=== PATIENT | male | born 1975 | race Caucasian/White ===

== ENCOUNTER 2021-05-29 15:18 | Emergency (ER) | payer SELFPAY ==
--- NOTE | ~2021-05-29 | XR_ITS ---
XR chest 2V 05/29/2021 15:54 Indication: Left-sided chest pain Procedure: 2 view chest Comparison: No prior studies for comparison. Findings: Left basilar infiltrates. Heart size normal. Right lung clear. No significant effusion or p neumothorax. No edema. Impression: 1: Left basilar infiltrates may represent atelectasis or developing pneumonia. Reviewed, dictated and finalized at location A. Impression: 1: Left basilar infiltrates may represent atelectasis or developing pneumonia.
--- NOTE | 2021-05-29 15:25 | ECG_ITS ---
Measurements Intervals [place] Rate: 88 P: 36 VT: 172 QRS: 3 QRSD: 101 T: 31 QT: 363 QTc: 440 Interpretive Statements SINUS RHYTHM CONSIDER INFERIOR INFARCT, AGE INDETERMINATE BASELINE ARTIFACT- V1 ABNORMAL ECG Electronically Signed On 05-29-2021 15:36:08 CDT by Alan Myers D.O.
[2021-05-29 15:35] VITALS: BP 148/82; PULSE 88; RESP 18; TEMP 36.2; O2SAT 99
[2021-05-29 15:52] LABS: Basophils Percent Auto 0.5 % (0.2-1.2); Eosinophils Percent Auto 0.7 % (0-4.4); Hematocrit 38.3 % (42.0-52.0); Immature Granulocyte Absolute 0.06 K/mm3 (0.00-0.031); Immature Granulocyte Percent A 1.4 % (0-0.5); Lymphocytes Absolute Auto 1.34 K/mm3 (0.9-3.2); Lymphocytes Percent Auto 30.2 % (18.3-44.2); Mean Corpuscular HGB Conc 33.9 g/dl (32-36); Mean Corpuscular Hemoglobin 32.1 pg (26-34); Mean Corpuscular Volume 94.6 fl (80-100); Mean Platelet Volume 10.1 fl (7.4-10.4); Monocytes Absolute Auto 0.7 K/mm3 (0.1-0.6); Monocytes Percent Auto 15.1 % (2.6-8.5); Neutrophils Absolute Auto 2.3 K/mm3 (1.3-6.7); Neutrophils Percent Auto 52.1 % (45.5-73.1); Platelet Count Result 253 k/mm3 (150-375); Red Blood Count 4.05 M/mm3 (4.6-6.20); Red Cell Distribution Width 12.9 % (11.5-14.5); White Blood Count 4.4 K/mm3 (4.5-10.0)
[2021-05-29 16:11] LABS: Anion Gap 5 mmol/L (8-16); Blood Urea Nitrogen 14 mg/dL (9-20); Calcium 8.7 mg/dL (8.4-10.2); Carbon Dioxide 25 mmol/L (22-30); Chloride 105 mmol/L (98-107); Estimated CRCL calculation 195 ml/min; Estimated Glomerular Filt Rate > 60; Glucose 123 mg/dL (65-110); Potassium 3.8 mmol/L (3.4-5.0); Sodium 135 mmol/L (137-145)
[2021-05-29 16:22] LABS: Troponin I < 0.012 ng/mL (0.000-0.034)
[2021-05-29 17:00] LABS: INR 0.9; Prothrombin Time 11.6 Seconds (11.1-14.7)
[2021-05-29 17:01] LABS: Partial Thromboplastin Time 28.7 SECONDS (22.3-36.8)
[2021-05-29 18:23] VITALS: PULSE 73
--- NOTE | 2021-05-29 18:37 | PC.NURSE ---
Called to room. Pt states I'm having SI thoughts now . ERP aware. Belongings removed.
--- NOTE | 2021-05-29 18:40 | PC.NURSE ---
Pt states he wants to sit out in traffic to kill himself. States he has had suicide attempts in the past with hanging and running out in front of trains.
--- NOTE | 2021-05-29 18:41 | PC.NURSE ---
Pt admits to nurse that he is homeless and from [place].
--- NOTE | 2021-05-29 18:49 | ED.CHESTPAIN ---
HPI - Chest Pain General Chief Complaint: Chest Pain <Parmjit Troncoso MD - Last Filed: 05/30/21 01:23> Stated Complaint: CP <Parmjit Troncoso MD - Last Filed: 05/30/21 01:23> Time Seen by Provider: 05/29/21 17:50 <Parmjit Troncoso MD - Last Filed: 05/30/21 01:23> Source: patient <Parmjit Troncoso MD - Last Filed: 05/30/21 01:23> Mode of arrival: EMS <Parmjit Troncoso MD - Last Filed: 05/30/21 01:23> Limitations: no limitations <Parmjit Troncoso MD - Last Filed: 05/30/21 01:23> History of Present Illness HPI narrative: 46-year-old with a history of coronary artery disease, hypertension, diabetes, GERD, hypothyroidism, depression here with complaints of chest pain. Patient states that he was on a [employer] bus started having chest pain and had to call the water taxi driver to call an ambulance and the patient later was brought into the ER. States that pain was 2 out of 10 initially now it is 10 out of 10. He denies any shortness of breath at this time. Patient states that he was nauseated earlier. Patient states that he had stent in his right RCA several years ago and the procedure was done at [facility]. He denies any fever or chills. <Parmjit Troncoso MD - Last Filed: 05/30/21 01:23> MD complaint: chest pain <Parmjit Troncoso MD - Last Filed: 05/30/21 01:23> Pertinent past history: coronary artery disease, prior AK and [employer] <Parmjit Troncoso MD - Last Filed: 05/30/21 01:23> Onset (ago): hour(s) (3) <Parmjit Troncoso MD - Last Filed: 05/30/21 01:23> Timing of current episode: constant <Parmjit Troncoso MD - Last Filed: 05/30/21 01:23> Prior episodes: Yes <Parmjit Troncoso MD - Last Filed: 05/30/21 01:23> Onset: during rest <Parmjit Troncoso MD - Last Filed: 05/30/21 01:23> Pain location: substernal <Parmjit Troncoso MD - Last Filed: 05/30/21 01:23> Pain radiation: none <MD Sarina Guajardo Last Filed: 05/30/21 01:23> Quality: tightness <MD Sarina Guajardo Last Filed: 05/30/21 01:23> Relieving factors: nothing <Parmjit Troncoso MD - Last Filed: 05/30/21 01:23> Exacerbating factors: nothing <Parmjit Troncoso MD - Last Filed: 05/30/21 01:23> Associated symptoms: nausea <MD Sarina Guajardo Last Filed: 05/30/21 01:23> Treatment prior to arrival: none <MD Sarina Guajardo Last Filed: 05/30/21 01:23> Risk Factors Coronary artery disease risk factors: diabetes, hyperlipidemia and hypertension <MD Sarina Guajardo Last Filed: 05/30/21 01:23> Thoracic aortic dissection risk factors: none <MD Sarina Guajardo Last Filed: 05/30/21 01:23> Related Data Home Medications: Home Medications Medication Instructions Recorded Confirmed famotidine 05/29/21 ferrous sulfate mg PO 05/29/21 gabapentin 05/29/21 levothyroxine 05/29/21 lisinopril 05/29/21 melatonin mg 05/29/21 olanzapine mg 05/29/21 pantoprazole PO 05/29/21 quetiapine [Seroquel] 400 mg PO DAILY 05/29/21 trazodone 200 mg HS 05/29/21 <MD Sarina Guajardo Last Filed: 05/30/21 01:23> Allergies/Adverse Reactions: Allergies Allergy/AdvReac Type Severity Reaction Status Date / Time acetaminophen [From Tylenol] Allergy Hives Verified 05/29/21 17:47 amoxicillin Allergy Hives Verified 05/29/21 17:47 aspirin Allergy Hives Verified 05/29/21 17:47 ibuprofen [From Motrin] Allergy Hives Verified 05/29/21 17:47 nitroglycerin Allergy Hives Verified 05/29/21 17:47 <MD Sarina Guajardo Last Filed: 09/09/21 01:23> Review of Systems Review of Systems: All systems reviewed & are unremarkable except as noted in HPI and below <Parmjit Troncoso MD - Last Filed: 05/30/21 01:23> Constitutional: Constitutional: Reports no additional constitutional complaints <Parmjit Troncoso MD - Last Filed: 05/30/21 01:23> Eyes: Eyes: Reports no additional eye complaints <Parmjit Troncoso MD - Last Filed: 05/30/21 01:23> Cardiovascular: Ca
[2021-05-29 18:56] LABS: Add Urine Microscopic? YES; Appearance Urine Clear (Clear); Bilirubin Urine 1+ (Negative); Blood Urine Negative (Negative); Color Urine Yellow (Yellow); Glucose Urine UA 1+ mg/dL (Negative); Ketones Urine Negative (Negative); Leukocyte Esterase Ur Negative LEU/UL (Negative); Mucus Urine Rare /lpf; Nitrate Urine Negative (Negative); Protein Urine 1+ mg/dL (Negative); RBC Urine 0-2 /hpf (0-2); WBC Urine 0-3 /hpf
[2021-05-29 18:59] LABS: Specific Grav Ur 1.032 (1.001-1.035)
[2021-05-29 19:14] LABS: Troponin I < 0.012 ng/mL (0.000-0.034)
[2021-05-29 19:16] LABS: Amphetamine Screen Urine Negative (Negative); Barbiturate Screen Urine Negative (Negative); Benzodiazepines Screen Urine Negative (Negative); Cannabinoid Screen Urine Negative (Negative); Cocaine Screen Urine Negative (Negative); Methadone Screen Urine Negative (Negative); Opiate Screen Urine Positive (Negative); Phencyclidine Screen Urine Negative (Negative)
[2021-05-29 19:17] LABS: Alanine Aminotransferase 16 U/L (4-50); Albumin Level 3.7 g/dL (3.5-5.1); Alkaline Phosphatase 49 U/L (38-126); Aspartate Amino Transferase 23 U/L (17-59); Bilirubin,Total 0.3 mg/dL (0.2-1.3); Ethanol < 10 mg/dL (<10)
[2021-05-29 19:36] VITALS: BP 137/83; PULSE 68; RESP 15; O2SAT 96
--- NOTE | 2021-05-29 19:38 | PC.NURSE ---
Assumed care of pt at this time, report taken from Letitia GONZALEZ. SI precautions in place with sitter at bedside. Pt alert and upright on stretcher, requesting pain medication. Reports 9/10 chest pain/pressure. EDP notified. Pt then asks this RN for call light back so he can hear television because, without it, it will be a long night . This RN explained to pt suicide protocol for pt and staff safety. Pt verbalized understanding, calm and cooperative at this time.
[2021-05-29 22:35] LABS: EDCOVIDSCREEN Negative (Negative)
--- NOTE | 2021-05-30 00:01 | PC.NURSE ---
Elizabeth went to discharge patient and patient states I am being admitted, I am going to kill myself . I explained to the patient that the dining service worker and the doctor both felt the patient was able to be discharged on a safety plan. Patient states loudly again I am going to kill myself . Patient will be moved to room 15, sitter at bedside. I contacted crisis again and Anastasia will talk to him again tomorrow morning.
--- NOTE | 2021-05-30 00:08 | PC.NURSE ---
Assumed care of pt, pt moved from room 7 to room 15 at this time. Pt has sitter at bedside, pt is alert and upright, discussed POC. VSS.
[2021-05-30 00:15] VITALS: BP 139/69; PULSE 73; RESP 15; O2SAT 95
[2021-05-30 03:54] VITALS: BP 133/89; PULSE 79; RESP 14; O2SAT 99
[2021-05-30 05:55] VITALS: BP 142/89; PULSE 84; RESP 17; O2SAT 100
--- NOTE | 2021-05-30 06:48 | PC.NURSE ---
Called dietary and ordered breakfast tray for pt at this time.
[2021-05-30 08:00] VITALS: BP 141/78; PULSE 74; RESP 18; TEMP 36.8; O2SAT 95
--- NOTE | 2021-05-30 08:35 | PC.NURSE ---
This RN into pts room to introduce myself. Ask pt if he was hearing or seeing things i would not be, pt states I see my dad coming at with a knife trying to kill me, I hear him telling me I am worthless and that I should kill myself, that no one will love me. Pt also states that when he is discharged he is going to go and sit in front of a train to kill himself. Pt states he feels like he doesnt have a good support system at home. Sitter is at bedside and room is safe
--- NOTE | 2021-05-30 10:04 | PC.NURSE ---
Joie Goowdin called and requested pts labs be sent.
--- NOTE | 2021-05-30 10:24 | PC.NURSE ---
Randolph calling to speak with pt
--- NOTE | 2021-05-30 10:56 | PC.NURSE ---
Per Joie pt has been accepted to [facility]
--- NOTE | 2021-05-30 11:47 | PC.NURSE ---
number received for report: Ca at [phone]
--- NOTE | 2021-05-30 12:14 | PC.NURSE ---
Rula from [facility] called to get report on pt. Accepting Dr. is Dr. Dyson and bed is [id number] bed [id number]
[2021-05-30 12:27] VITALS: BP 132/76; PULSE 71; RESP 16; TEMP 37.1; O2SAT 95
[2021-05-30 15:07] VITALS: BP 159/99; PULSE 77; RESP 20; TEMP 36.1; O2SAT 95
== END 2021-05-30 15:10 ==
PROVIDERS: Emergency Medicine; Family Medicine; Emergency Provider Emergency Medicine
DX: R07.89 Other chest pain (principal); F32.9 Major depressive disorder, single episode, unspecified; I25.10 Atherosclerotic heart disease of native coronary artery without angina pectoris; I11.0 Hypertensive heart disease with heart failure; E11.9 Type 2 diabetes mellitus without complications; E03.9 Hypothyroidism, unspecified; Z20.822 Contact with and (suspected) exposure to COVID-19; Z87.19 Personal history of other diseases of the digestive system
CPT/HCPCS: 36415; 71046; 80048; 80076; 80307; 81001; 84443; 84484; 85025; 85610; 85730; 87426; 93005; 99285; C9803